=== PATIENT | female | born 1950 | race Asian ===

== ENCOUNTER 2018-08-23 05:50 | Day surgery (SDC) | payer MEDICARE, OTHER ==
[~2018-08-23] VITALS: Ht 165.1 cm; Wt 71.0 kg
[~2018-08-23 05:50] MED LIST: ADV500 IH; ALBU8.5H8 IH; DOCU-202 PO; FLUT16H NASAL; GLIP10 PO; HYDR25TA PO; LOSA50TA25 PO; METF-960 PO; MONT10TA21 PO; OS500 PO; PRAV20TA4 PO; RANI150T7 PO; TIOT185 IH
[2018-08-23] MEDS ORDERED: LIDOCAINE 2% 30 ML JELLY TP ONE (05:51)
[2018-08-23] MEDS ORDERED: LIDOCAINE 4% 50 ML SOLUTION TP ONE (05:51)
[2018-08-23] MEDS ORDERED: BENZOCAINE 20% 50 MCG/SPRAY 57 GM TP ONE (05:51)
[2018-08-23] MEDS ORDERED: SODIUM CHLORIDE 0.9% 1,000 ML IV ONE ×2 (06:20→06:30)
[2018-08-23 07:09] LABS: GLUCOMETER DEV NAME(LOC) SDS 5; GLUCOSE,POINT OF CARE 93 MG/DL (70-110)
[2018-08-23] MEDS ORDERED: FentaNYL CITRATE-PF 100 MCG/2 ML VIAL ONE (07:47)
[2018-08-23] MEDS ORDERED: MIDAZOLAM HCL 2 MG/2 ML VIAL ONE (07:47)
[2018-08-23] MEDS ORDERED: MethylPREDNISolone SOD SUCC 125 MG/2 ML VIAL IVP ONE (08:30)
[2018-08-23] MEDS ORDERED: OXYGEN THERAPY IH SCH (20:00)
== END 2018-08-23 09:45 | disposition home or self-care (01) ==
LOC: SURGERY 05:50
PROVIDERS: ATTEND Internal Medicine Critical Care Medicine
DX: J38.4 Edema of larynx (principal); B37.0 Candidal stomatitis; J98.09 Other diseases of bronchus, not elsewhere classified; J98.8 Other specified respiratory disorders; F17.210 Nicotine dependence, cigarettes, uncomplicated; I10 Essential (primary) hypertension; E11.9 Type 2 diabetes mellitus without complications; J47.9 Bronchiectasis, uncomplicated; I25.10 Atherosclerotic heart disease of native coronary artery without angina pectoris; N20.0 Calculus of kidney; K76.89 Other specified diseases of liver; M46.04 Spinal enthesopathy, thoracic region; I70.0 Atherosclerosis of aorta; E78.00 Pure hypercholesterolemia, unspecified; M17.0 Bilateral primary osteoarthritis of knee; Z79.84 Long term (current) use of oral hypoglycemic drugs; Z79.891 Long term (current) use of opiate analgesic; Z79.899 Other long term (current) drug therapy; Z98.890 Other specified postprocedural states
CPT/HCPCS: 31623; 31624; 71045; 71250; 82962; 87015; 87070; 87205; 87206; 87220; 88108; 88312; J2250; J2930; J3010; J7030

== ENCOUNTER 2023-03-30 06:18 | Day surgery (SDC) | payer MEDICARE, OTHER ==
[~2023-03-30] VITALS: Ht 165.1 cm; Wt 71.7 kg
[~2023-03-30 06:18] MED LIST changes: -FLUT16H NASAL; +FLUT16SP NASAL; -GLIP10 PO; +GLIP10TA10 PO; -HYDR25TA PO; +HYDR25TA2 PO; +LOSA-382 PO; -LOSA50TA25 PO; +METF-1211 PO; -METF-960 PO; +MONT-35 PO; -MONT10TA21 PO
[2023-03-30] MEDS ORDERED: ALBUTEROL SULFATE 2.5 MG/0.5 ML NEB SOLUTION NEB ONE (06:19)
[2023-03-30] MEDS ORDERED: LIDOCAINE 4% 50 ML SOLUTION TP ONE (06:19)
[2023-03-30] MEDS ORDERED: LIDOCAINE 2% 11 ML JELLY TP ONE (06:19)
[2023-03-30] MEDS ORDERED: BENZOCAINE 20% 50 MCG/SPRAY 57 GM TP ONE (06:19)
[2023-03-30] MEDS ORDERED: SODIUM CHLORIDE 0.9% 1,000 ML IV ONE (07:00)
[2023-03-30] MEDS ORDERED: SODIUM CHLORIDE 0.9% 1,000 ML ONE (07:34)
[2023-03-30] MEDS ORDERED: FentaNYL CITRATE PF 100 MCG/2 ML VIAL ONE (07:53)
[2023-03-30] MEDS ORDERED: MIDAZOLAM HCL 2 MG/2 ML VIAL ONE (07:53)
[2023-03-30] MEDS ORDERED: FAMO20 PO (09:00)
[2023-03-30] MEDS ORDERED: TICA90TA PO (09:00)
[2023-03-30] MEDS ORDERED: ATOR40TA28 PO (09:00)
[2023-03-30] MEDS ORDERED: ASPI-1450 PO (09:00)
[2023-03-30] MEDS ORDERED: METO25XL PO (09:00)
[2023-03-30] MEDS ORDERED: AMLO2.5T96 PO (09:01)
[2023-03-30 09:10] VITALS: PULSE 86; RESP 13; O2SAT 100
[2023-03-30] MEDS ORDERED: MethylPREDNISolone SOD SUCC 125 MG/2 ML VIAL ONE (09:24)
[2023-03-30] MEDS ORDERED: MethylPREDNISolone SOD SUCC 125 MG/2 ML VIAL IVP ONE (09:30)
[2023-03-30 09:38] LABS: GLUCOMETER DEV NAME(LOC) SDS.
== END 2023-03-30 10:55 | disposition home or self-care (01) ==
LOC: SURGERY 06:18
PROVIDERS: ATTEND Internal Medicine Critical Care Medicine
DX: J38.4 Edema of larynx (principal); B37.0 Candidal stomatitis; Z79.899 Other long term (current) drug therapy; F17.210 Nicotine dependence, cigarettes, uncomplicated; Z87.01 Personal history of pneumonia (recurrent); I10 Essential (primary) hypertension; I25.2 Old myocardial infarction; E11.9 Type 2 diabetes mellitus without complications; Z98.890 Other specified postprocedural states
CPT/HCPCS: 31623; 31624; 88112; 82962; 87206; 87101; 87220; 87070; 94640; 71045; 87015; J3010; J2250; J2930; Q9967; J7030; J7613; Z7610